=== PATIENT | female | born 1980 | race Caucasian/White ===

== ENCOUNTER → 2020-10-10 | Outpatient (CLI) | payer SELFPAY ==
[2020-10-10 13:56] LABS: BASO # 0.03 (0.02-0.10); EOS # 0.22 (0.04-0.40); EOS % 2.6 % (1.0-5.0); HEMATOCRIT 41.3 % (37.0-47.0); HEMOGLOBIN 13.5 g/dL (12.5-16.0); MEAN CELL VOLUME 93 fl (78-100); MEAN CORPUSCULAR HEMOGLOBIN 31 pg (27-31); MEAN CORPUSCULAR HGB CONC 33 g/dL (33-37); MEAN PLATELET VOLUME 8.9 fl (7.4-10.4); MONO # 0.46 (0.20-0.80); PLATELET COUNT 319 K/mm3 (130-400); RED BLOOD COUNT 4.42 M/mm3 (4.10-5.30); RED CELL DISTRIBUTION WIDTH 13.3 % (11.5-14.5); WHITE BLOOD COUNT 8.3 K/mm3 (4.8-10.8)
[2020-10-10 14:08] LABS: POTASSIUM 3.6 mmol/L (3.5-5.1)
[2020-10-10 14:09] LABS: CALCIUM 9.1 mg/dL (8.3-10.5)
[2020-10-10 15:09] LABS: ERYTHROCYTE SEDIMENTATION RATE 26 mm/hr (0-20)
== END ==
LOC: LAB 13:41
PROVIDERS: Physician Assistant
DX: L03.114 Cellulitis of left upper limb (principal)